=== PATIENT | female | born 1950 | race Hispanic/Latino ===

== ENCOUNTER 2024-11-30 02:40 | Emergency (ER) | payer OTHER, MEDICARE ==
[~2024-11-30] VITALS: Ht 154.9 cm; Wt 54.0 kg
[~2024-11-30 02:40] MED LIST: AMLO5TAB4 PO; CEFD300C3 PO; GABA100C PO
--- NOTE | 2024-11-30 02:58 | ERN ---
ED Note History of Present Illness Stated Complaint: ABD PAIN, DIARRHEA Chief Complaint: Abdominal Pain Time Seen by MD: 02:52 Time Seen by Midlevel: 02:52 Dictation: The patient is a 74-year-old female with a history of hypertension, colon cancer currently on oral chemo who presents to the emergency department with complaints of right upper abdominal pain onset just prior to arrival. Surgical history includes a low anterior resection with a colostomy. The colostomy was reversed and then the patient had a small bowel obstruction needing a 2nd surgery. At that point the patient had her small-bowel reconnected to her rectum. Patient otherwise denies any nausea or vomiting, denies fevers, denies constipation. Reports she has diarrhea due to her chemo. Allergies: Coded Allergies: No Known Drug Allergies (Unverified Allergy, Unknown, 04/02/24) Home Meds Active Scripts Cefdinir (Cefdinir) 300 Mg Capsule, 1 CAP PO BID for 5 Days, #10 CAP 0 Refills Prov:DUTCH LOZOYA MD 08/29/24 Gabapentin (Neurontin) 100 Mg Capsule, 100 MG PO BID, #60 CAP Prov:IMANI AGRAWAL CERTIFIED NURSING ASSISTANT INSTRUCTOR 08/22/24 Amlodipine Besylate (Norvasc 5Mg Tab) 5 Mg Tablet, 5 MG PO DAILY, #60 TAB Prov:IMANI AGRAWAL CERTIFIED NURSING ASSISTANT INSTRUCTOR 08/22/24 Past Medical History Past Medical History: Hypertension, Other Additional Past Medical Hx: colon ca Surgical History: Other Surgical History Other: ileostomy closure History: Not Applicable RN Note Reviewed/Agreed w/PFSH: Yes Review of System Dictation Constitutional: Negative for fever,chills, and weight loss Eyes: Negative for injury, pain,redness, and discharge ENT: Negative for injury,pain or swelling Cardiovascular: Negative for chest pain, palpitations, and edema Respiratory: Negative for shortness of breath, cough, and wheezing, Abdomen/GI: Negative for nausea, vomiting, diarrhea, and constipation positive for abdominal pain Back: Negative for injury and pain : Negative for injury, bleeding and discharge MS/Extremity: Negative for injury and deformity Skin: Negative for rash, and discoloration Neuro: Negative for headache, weakness, numbness, tingling, and seizure Psych: Negative for suicide ideation, homicidal ideation, and hallucinations Initial Vital Sign VS Vital Signs Date Time Temp Pulse Resp B/P (MAP) Pulse Ox O2 Delivery O2 Flow Rate FiO2 11/30/24 02:41 96.6 55 20 101/40 99 Room Air 0 11/30/24 03:10 21 Physical Exam Dictation Vital Signs reviewed General Appearance: Alert, oriented x 3, no acute distress, well developed, nourished. Head and Face: non-traumatic. Eyes: PERRL, pink conjunctivas, eyelid no trauma, anterior chamber with arcus senilis. Ears: Pinnas intact and no signs of trauma or erythema ear canals clear and no discharge TM no erythema Nose: No discharge, no bleeding. Oropharynx: Mouth normal, tongue pink. pharynx clear,no erythema, tonsils no exudates, no abscesses noted, mucous membrane moist Neck: Supple, non-tender, no thyromegaly, no masses, no JVD, no bruits Breast:Deferred Chest:No tenderness, no crepitus, no paradoxical movement, no retractions Lungs:Clear, well-ventilated, symmetric, no rales, no wheezing, no rhonchi, no stridor, good breath sounds bilaterally Heart: Regular rate, regular rhythm, no murmur, no gallops Vascular: no peripheral edema, Abdomen: Soft, positive bowel sounds, nondistended, no guarding, Right upper quadrant tenderness,, no rebound, no masses no hepatomegaly, no splenomegaly, no Mason's sign, no hernias. The patient has had her gallbladder removed. The right upper quadrant pain and tenderness is in the region of the hepatic flexure. Rectal: Deferred Genital: Deferred Neurological: Normal speech, motor function intact, sensory function intact Musculoskeletal: Neck nontender, full range of motion, back nontender, full range of motion, Extremities: nontender, full range of motion Skin: Color pink, dry, no turgor, no rash, no lacerations, no abrasions, no contusions. Lymphatic: Deferred Results (Laboratory/Radiology) Laboratory/Radiology Laboratory Tests Test 11/30/24 02:59 White Blood Count 6.0 K/uL (4.8-10.8) Red Blood Count 3.58 MIL/uL (4.00-5.50) L Hemoglobin 11.7 g/dL (12.0-16.0) L Hematocrit 35.1 % (36-48) L Mean Corpuscular Volume 98.0 fL (79-99) Mean Corpuscular Hemoglobin 32.7 pg (27.0-33.0) Mean Corpuscular Hemoglobin Concent 33.3 g/dL (32.0-36.0) Red Cell Distribution Width 14.4 % (11.0-15.5) Platelet Count 145 K/uL (130-400) Mean Platelet Volume 11.8 fL (7.5-10.5) H Immature Granulocyte % (Auto) 0.2 % (0-1) Neutrophils (%) (Auto) 58.0 % (40.0-77.0) Lymphocytes (%) (Auto) 29.4 % (21.0-51.0) Monocytes (%) (Auto) 5.4 % (3.0-13.0) Eosinophils (%) (Auto) 6.2 % (0.0-8.0) Basophils (%) (Auto) 0.8 % (0.0-5.0) Neutrophils # (Auto) 3.5 K/uL (1.8-7.7) Lymphocytes # (Auto) 1.8 K/uL (1.0-4.8) Monocytes # (Auto) 0.3 K/uL (0.1-1.0) Eosinophils # (Auto) 0.37 K/uL (0.00-0.70) Basophils # (Auto) 0.05 K/uL (0.00-0.20) Absolute Immature Granulocyte (auto 0.01 K/uL (0-1) Nucleated Red Blood Cells 0.0 % (0.0-0.19) Sodium Level 145 mmol/L (136-145) Potassium Level 3.5 mmol/L (3.5-5.1) Chloride Level 106 mmol/L (101-111) Carbon Dioxide Level 30 mmol/L (21-32) Blood Urea Nitrogen 15 mg/dL (7-18) Creatinine 0.9 mg/dL (0.5-1.0) Glomerular Filtration Rate Calc 68 mL/min (>90) Random Glucose 113 mg/dL (70-105) H Total Calcium 8.9 mg/dL (8.5-10.1) Total Bilirubin 0.6 mg/dL (0.2-1.0) Direct Bilirubin 0.3 mg/dL (0.0-0.3) Aspartate Amino Transf (AST/SGOT) 72 U/L (10-37) H Alanine Aminotransferase (ALT/SGPT) 29 U/L (12-78) Alkaline Phosphatase 95 U/L (50-136) Total Protein 6.1 g/dL (6.0-8.3) Albumin 3.5 g/dL (3.5-5.0) Lipase 242 U/L (16-77) H Labs Reviewed?: Yes EKG: (+) NSR ED Course ED Course Orders Procedure Category Date Status Time Vital Signs Per CPOE 11/30/24 Transmitted Routine 02:50 Saline Lock Iv CPOE 11/30/24 Transmitted 02:50 Cbc With Differential LAB 11/30/24 Complete 02:50 Lipase LAB 11/30/24 Complete 02:50 Urinalysis Profile LAB 11/30/24 Logged 02:50 12 Lead Ekg Tracing- EKG 11/30/24 Logged Technical 02:50 Basic Metabolic Panel LAB 11/30/24 Complete 02:50 0.9%Nacl 1000ml (Ns PHA 11/30/24 In Process 1000ml) 03:00 Pantoprazole 40mg Inj PHA 11/30/24 Complete (Protonix 40mg Inj 03:00 Hepatic Function Panel LAB 11/30/24 Complete 02:56 Abd 1vw RAD 11/30/24 Taken 03:06 Current Medications Medications (Trade) Dose Ordered Sig/Karsten Route PRN Reason Start Time Stop Time Status Last Admin Dose Admin Pantoprazole Sodium (PROTonix 40MG INJ) 40 mg ONCE ONCE IVP 11/30/24 03:00 11/30/24 03:01 DC 11/30/24 03:07 Sodium Chloride 1,000 ml @ 125 mls/hr ONCE ONCE IV 11/30/24 03:00 11/30/24 10:59 11/30/24 03:07 Vital Signs Date Time Temp Pulse Resp B/P (MAP) Pulse Ox O2 Delivery O2 Flow Rate FiO2 11/30/24 03:10 97.2 53 12 128/52 100 Room Air* 0 21 11/30/24 02:41 96.6 55 20 101/40 99 Room Air 0 Patient's KUB is unremarkable. Patient's chemistry panel shows pancreatitis. CBC was also normal beyond a mild anemia. Patient has been able to eat a little bit of food while she was here in the hospital. She feels better with the hydration. She is stable for discharge. Medical Decision Making MDM Patient's symptoms are most likely a secondary effect of the chemotherapeutic agent that she is taking. I will draw some labs to make sure she is not dehydrated or having an infection. In addition we will get an x-ray to rule out bowel obstruction. DX & DISP Disposition: Discharge Departure Impression: Primary Impression: Chemotherapy induced diarrhea Condition: Stable Additional Instructions: You came here because of concerns about right upper quadrant pain and diarrhea anytime patient [age] even the tiniest bit of food. Our workup here shows a normal x-ray of your abdomen. The lab studies show a mild anemia and also a mild pancreatitis. I think the diarrhea in the pancreatitis are both a side ef fect of your chemotherapy agent capecitabine. You should talk to your oncologist about lowering the dose. You can also help control the diarrhea with Lomotil which you state you already have at her house. Follow the directions on the label. I think it is safe for you to go home. Please drink lots of fluids so you do not get dehydrated. Good rule of thumb is to drink so much fluid that your urine is clear at least once a day. You also mentioned some mild pain which can be treated with ibuprofen or Tylenol. Please follow-up with your oncologist or your primary care doctor if your diarrhea does not improve on the Lomotil. Referrals: SELF,REFERRAL (PCP) KENIA AVILES Nov 30, 2024 02:58 AJAY YODER MD Nov 30, 2024 03:33
[2024-11-30] MEDS: 0.9%NACL 1000ML 1,000 ML IV ONE (03:07)
[2024-11-30 03:08] LABS: IMMATURE GRANULOCYTE ABSOLUTE 0.01 K/uL (0-1); NUCLEATED RED BLOOD CELLS 0.0 % (0.0-0.19); PLATELET COUNT (AUTO) 145 K/uL (130-400); RED BLOOD CELL COUNT(AUTO) 3.58 MIL/uL (4.00-5.50); RED CELL DISTRIBUTION WIDTH 14.4 % (11.0-15.5); WHITE BLOOD COUNT (AUTO) 6.0 K/uL (4.8-10.8)
[2024-11-30 03:23] LABS: CREATININE 0.9 mg/dL (0.5-1.0); GLOMERULAR FILTR. RATE CALC 68.0 mL/min (>90); GLUCOSE,RANDOM 113.0 mg/dL (70-105); SODIUM SERUM 145.0 mmol/L (136-145); UREA NITROGEN, BLOOD 15.0 mg/dL (7-18)
[2024-11-30 03:24] LABS: ASPARTATE AMINOTRANSFERASE 72.0 U/L (10-37); TOTAL PROTEIN, SERUM 6.1 g/dL (6.0-8.3)
[2024-11-30 04:21] VITALS: BP 122/54; PULSE 54; RESP 12; TEMP 97.6; O2SAT 99
--- NOTE | 2024-11-30 04:54 | HMCIMG ---
EXAM: CR Abdomen, 1 view CLINICAL HISTORY: Pain. Diarrhea. COMPARISON: Radiograph of the abdomen dated 04/05/2024. FINDINGS: Nonobstructed nonspecific bowel gas pattern. No free air is evident. No abnormal calcification. No aggressive appearing osseous lesion. IMPRESSION: No acute process. Nonobstructed nonspecific bowel gas pattern. No adverse interval changes. /[place]
--- NOTE | 2024-11-30 05:20 | EKG ---
[facility] Test Date: 2024-11-30 Test Time: 02:49:02 Pat Name: CARLIN SANCHES Department: ED Room: Gender: F Channel Lip Stiffener Insoles: [id number] : 1950 Requested By: AJAY YODER Order Number: [id number] Reading MD: Lalit Driscoll Measurements Intervals [place] Rate: 53 P: 53 [place]: 165 QRS: 9 QRSD: 89 T: 18 QT: 457 QTc: 431 Interpretive Statements Sinus Bradycardia Compared to ECG 08/24/2024 18:17:43 No significant changes Electronically Signed On 11-30-2024 12:04:06 CDT by Lalit Driscoll Please click the below link to view image of tracing.
== END 2024-11-30 04:39 | disposition home or self-care (01) ==
LOC: EDH 02:40
DX: K52.1 Toxic gastroenteritis and colitis (principal); T45.1X5A Adverse effect of antineoplastic and immunosuppressive drugs, initial encounter; I10 Essential (primary) hypertension; Z79.899 Other long term (current) drug therapy; Z85.038 Personal history of other malignant neoplasm of large intestine; Y92.89 Other specified places as the place of occurrence of the external cause
CPT/HCPCS: 99283; 96374; 80076; 80048; 83690; 85025; 36415; 74018; 93005; J7030; J2470